=== PATIENT | female | born 1950 | race Caucasian/White ===

== ENCOUNTER 2021-01-28 09:48 | Observation (INO) | payer MEDICARE ==
[~2021-01-28] VITALS: Ht 157.5 cm; Wt 98.5 kg
[2021-01-29 12:17] VITALS: BP 120/64
== END 2021-01-29 13:25 | disposition home or self-care (01) ==
LOC: OUT 09:48 → ORIP 10:40 → 4NE 14:42
PROVIDERS: ADMIT Orthopaedic Surgery; ATTEND Orthopaedic Surgery
DX: M17.12 Unilateral primary osteoarthritis, left knee (principal); J44.9 Chronic obstructive pulmonary disease, unspecified; K21.9 Gastro-esophageal reflux disease without esophagitis; E78.00 Pure hypercholesterolemia, unspecified; E78.5 Hyperlipidemia, unspecified; G47.33 Obstructive sleep apnea (adult) (pediatric); I73.9 Peripheral vascular disease, unspecified; I25.2 Old myocardial infarction; Z79.82 Long term (current) use of aspirin; Z85.3 Personal history of malignant neoplasm of breast; Z79.899 Other long term (current) drug therapy; Z96.651 Presence of right artificial knee joint; Z98.84 Bariatric surgery status